=== PATIENT | male | born 1975 | race African-American/Black ===

== ENCOUNTER 2017-07-21 12:28 | Emergency (ER) | payer MEDICAID ==
[~2017-07-21] VITALS: Ht 180.3 cm; Wt 93.2 kg
[2017-07-21] MEDS ORDERED: KETOROLAC TROMETHAMINE 60 MG/2 ML VIAL IM ONE (13:30)
[2017-07-21 16:05] VITALS: BP 132/76
== END 2017-07-21 16:07 | disposition home or self-care (01) ==
LOC: EMS 12:43
DX: M79.641 Pain in right hand (principal)
CPT/HCPCS: 73130; 96372; 99284; J1885

== ENCOUNTER 2018-10-26 20:10 | Emergency (ER) | payer SELFPAY ==
[~2018-10-26] VITALS: Ht 180.3 cm; Wt 86.4 kg
[2018-10-26] MEDS ORDERED: SULFAMETHOX/TRIMETH DS 800-160 MG/TABLET PO ONE (22:00)
[2018-10-26] MEDS ORDERED: KETOROLAC TROMETHAMINE 60 MG/2 ML VIAL IM ONE (22:00)
[2018-10-26] MEDS ORDERED: POVIDONE-IODINE 10% 15 ML SOLUTION UD TP ONE (22:00)
[2018-10-26] MEDS ORDERED: CEPHALEXIN MONOHYDRATE 500 MG CAPSULE PO ONE (22:00)
[2018-10-26] MEDS ORDERED: LIDOCAINE 1% 10 ML VIAL INJ ONE (22:30)
[2018-10-26 22:45] VITALS: BP 129/73
== END 2018-10-26 22:47 | disposition home or self-care (01) ==
LOC: EMS 20:11
DX: L02.01 Cutaneous abscess of face (principal)
CPT/HCPCS: 10060; 99284; J1885; J3490

== ENCOUNTER 2019-06-19 10:01 | Emergency (ER) | payer MEDICAID ==
[~2019-06-19] VITALS: Ht 182.9 cm; Wt 86.4 kg
[2019-06-19] MEDS ORDERED: AMPICILLIN SODIUM/SULBACTAM NA 3 GM in SODIUM CHLORIDE 0.9% 100 ML IV ONE (10:45)
[2019-06-19] MEDS ORDERED: KETOROLAC TROMETHAMINE 30 MG/ML VIAL IVP ONE (10:45)
[2019-06-19] MEDS ORDERED: AMPICILLIN SODIUM/SULBACTAM NA 3 GM/VIAL IM ONE (11:00)
[2019-06-19] MEDS ORDERED: IBUPROFEN 400 MG TABLET PO ONE (11:00)
[2019-06-19] MEDS ORDERED: LIDOCAINE 1% 10 ML VIAL INJ ONE (11:15)
[2019-06-19 12:13] VITALS: BP 125/77
== END 2019-06-19 12:48 | disposition home or self-care (01) ==
LOC: EMS 10:01
DX: K04.7 Periapical abscess without sinus (principal)
CPT/HCPCS: 96372; 99285; J0295; J3490; J7050

== ENCOUNTER 2019-09-13 17:08 | Emergency (ER) | payer SELFPAY ==
[~2019-09-13] VITALS: Ht 180.3 cm; Wt 79.5 kg
[2019-09-13 21:00] VITALS: BP 129/68
== END 2019-09-13 21:15 | disposition home or self-care (01) ==
LOC: EMS 17:11
DX: S92.152A Displaced avulsion fracture (chip fracture) of left talus, initial encounter for closed fracture (principal); F17.210 Nicotine dependence, cigarettes, uncomplicated; W19.XXXA Unspecified fall, initial encounter; Y93.89 Activity, other specified; Y92.89 Other specified places as the place of occurrence of the external cause; Y99.8 Other external cause status
CPT/HCPCS: 29515

== ENCOUNTER 2019-11-08 16:28 | Emergency (ER) | payer MEDICAID ==
[~2019-11-08] VITALS: Ht 172.7 cm; Wt 77.3 kg
[2019-11-08] MEDS ORDERED: KETOROLAC TROMETHAMINE 30 MG/ML VIAL IM ONE (17:00)
[2019-11-08 18:11] VITALS: BP 137/79
== END 2019-11-08 18:18 | disposition home or self-care (01) ==
LOC: EMS 16:28
DX: S39.011A Strain of muscle, fascia and tendon of abdomen, initial encounter (principal); F17.210 Nicotine dependence, cigarettes, uncomplicated; F19.90 Other psychoactive substance use, unspecified, uncomplicated; X58.XXXA Exposure to other specified factors, initial encounter; Y93.89 Activity, other specified; Y92.89 Other specified places as the place of occurrence of the external cause; Y99.8 Other external cause status
CPT/HCPCS: 81002; 96372; 99283; J1885

== ENCOUNTER 2021-03-19 20:34 | Emergency (ER) | payer MEDICAID, OTHER ==
[~2021-03-19] VITALS: Ht 180.3 cm; Wt 88.2 kg
[2021-03-19] MEDS ORDERED: KETOROLAC TROMETHAMINE 60 MG/2 ML VIAL IM ONE (21:45)
[2021-03-19 22:07] VITALS: BP 159/90
== END 2021-03-19 22:25 | disposition home or self-care (01) ==
LOC: EMS 20:37
DX: M79.641 Pain in right hand (principal); F17.210 Nicotine dependence, cigarettes, uncomplicated; F15.90 Other stimulant use, unspecified, uncomplicated
CPT/HCPCS: 96372; 99283; J1885

== ENCOUNTER 2021-07-28 23:30 | Emergency (ER) | payer OTHER ==
[~2021-07-28] VITALS: Ht 180.3 cm; Wt 86.4 kg
[2021-07-29] MEDS ORDERED: IBUPROFEN 600 MG TABLET PO ONE (01:45)
[2021-07-29] MEDS ORDERED: ACETAMINOPHEN/CODEINE 300-30 MG TABLET PO ONE (01:45)
[2021-07-29] MEDS ORDERED: CEPHALEXIN MONOHYDRATE 500 MG CAPSULE PO ONE (01:45)
[2021-07-29 02:17] VITALS: BP 133/84
== END 2021-07-29 02:30 | disposition home or self-care (01) ==
LOC: EMS 23:32
DX: K04.7 Periapical abscess without sinus (principal); K05.10 Chronic gingivitis, plaque induced; F15.90 Other stimulant use, unspecified, uncomplicated; F17.210 Nicotine dependence, cigarettes, uncomplicated
CPT/HCPCS: 99284; Z7502; Z7610

== ENCOUNTER 2021-10-09 18:15 | Emergency (ER) | payer OTHER ==
[~2021-10-09] VITALS: Ht 180.3 cm; Wt 88.6 kg
[2021-10-09] MEDS ORDERED: LIDOCAINE 1% 10 ML VIAL PERC ONE (20:15)
[2021-10-09] MEDS ORDERED: NAPR-1025 PO (20:53)
[2021-10-09] MEDS ORDERED: PENI500T2 PO (20:54)
[2021-10-09 21:13] VITALS: BP 129/83
== END 2021-10-09 22:03 | disposition home or self-care (01) ==
LOC: EMS 18:35
DX: K04.7 Periapical abscess without sinus (principal); F17.210 Nicotine dependence, cigarettes, uncomplicated; F15.90 Other stimulant use, unspecified, uncomplicated
CPT/HCPCS: 99283; 41800; J3490

== ENCOUNTER 2021-11-02 02:32 | Emergency (ER) | payer OTHER ==
[~2021-11-02] VITALS: Ht 180.3 cm; Wt 91.4 kg
[~2021-11-02 02:32] MED LIST: NAPR-1025 PO; PENI500T2 PO
[2021-11-02 02:50] VITALS: BP 142/85
[2021-11-02] MEDS ORDERED: PENICILLIN V POTASSIUM 500 MG TABLET PO ONE (03:15)
[2021-11-02] MEDS ORDERED: AMOX TR/POT CLAV 875 MG/125 MG TABLET PO ONE (03:15)
[2021-11-02] MEDS ORDERED: TraMADol HCL 50 MG TABLET PO ONE (03:15)
[2021-11-02] MEDS ORDERED: TRAM50TA4 PO (03:16)
[2021-11-02] MEDS ORDERED: AMOX1TAB16 PO (03:16)
== END 2021-11-02 03:25 | disposition home or self-care (01) ==
LOC: EMS 02:33
DX: K04.7 Periapical abscess without sinus (principal); F17.210 Nicotine dependence, cigarettes, uncomplicated; F15.90 Other stimulant use, unspecified, uncomplicated
CPT/HCPCS: 99283